=== PATIENT | male | born 1990 | race Caucasian/White ===

== ENCOUNTER 2018-05-11 15:11 | Emergency (ER) | payer MEDICAID ==
[~2018-05-11] VITALS: Ht 28086.8 cm; Wt 67.3 kg
[~2018-05-11 15:11] MED LIST: NO HOME MEDS
[2018-05-11 17:56] LABS: BASOPHILS % (AUTO) 0.2 % (0-1); EOSINOPHILS # (AUTO) 0.1 X10'3 (0-0.9); EOSINOPHILS % (AUTO) 0.4 % (0-6); HEMATOCRIT 43.2 % (42.0-52.0); HEMOGLOBIN 14.8 g/dl (14.0-17.9); LYMPHOCYTES # (AUTO) 1.9 X10'3 (1.1-4.8); LYMPHOCYTES % (AUTO) 12.1 % (21-51); MEAN CORPUSCULAR HGB CONC 34.2 % (33.0-36.5); MEAN CORPUSCULAR VOLUME 90.6 FL (78-98); MEAN PLATELET VOLUME 8.2 FL (7.4-10.4); MONOCYTES % (AUTO) 6.6 % (2-12); NEUTROPHILS # (AUTO) 12.5 X10'3 (1.8-7.7); NEUTROPHILS % (AUTO) 80.7 % (42-75); PLATELET COUNT 260 X10'3 (140-440); RED BLOOD COUNT 4.77 X10'6 (4.70-6.10); RED CELL DISTRIBUTION WIDTH 13.1 % (11.5-14.5); WHITE BLOOD COUNT 15.5 X10'3 (4.5-11.0)
[2018-05-11 18:18] LABS: ALBUMIN 4.5 G/DL (3.4-5.0); ANION GAP 8 (8-16); BLOOD UREA NITROGEN 20 MG/DL (7-18); BUN/CREATININE RATIO 19.2 (5.4-32.0); CALCIUM 9.4 MG/DL (8.5-10.1); CHLORIDE 104 MMOL/L (99-107); CREATININE 1.04 MG/DL (0.60-1.10); GLUCOSE 93 MG/DL (70-104); POTASSIUM 4.1 MMOL/L (3.5-5.1); SODIUM 143 MMOL/L (135-145); TOTAL CARBON DIOXIDE 30.8 MMOL/L (24-32); eGFR 86 ML/MIN
[2018-05-11 18:18] LABS: CLARITY,URINE SLIGHTLY CLOUDY (Clear); COLOR,URINE YELLOW (Yellow); GLUCOSE, URINE NEGATIVE (Neg); KETONES,URINE TRACE mg/dl (Neg); LEUKOCYTE ESTERASE ,URINE NEGATIVE (Neg); NITRITES, URINE NEGATIVE (Neg); OCCULT BLOOD,URINE NEGATIVE (Neg); PH,URINE 5.5 (4.8-8.0); PROTEIN,URINE 30 mg/dl (Neg); UROBILINOGEN,URINE 0.2 E.U/dL (0.2-1.0)
[2018-05-11 18:22] LABS: UA COLLECTION TYPE CLN CATCH MIDSTREAM
[2018-05-11 18:28] LABS: PLATELET ESTIMATE NORMAL; TOTAL CELLS COUNTED 100
[2018-05-11 18:29] LABS: TOXIC GRANULATION 1+; TOXIC VACUOLATION FEW
[2018-05-11 18:33] LABS: URINE AMPHETAMINE SCREEN NEGATIVE (Neg); URINE BARBITUATE SCREEN NEGATIVE (Neg); URINE BENZODIAZEPINES SCREEN NEGATIVE (Neg); URINE CANNABINOID SCREEN POSITIVE (Neg); URINE COCAINE SCREEN NEGATIVE (Neg); URINE METHADONE SCREEN NEGATIVE (Neg); URINE OPIATE SCREEN NEGATIVE (Neg); URINE PHENCYCLIDINE SCREEN NEGATIVE (Neg)
[2018-05-11 18:35] LABS: BACTERIA,URINE NONE SEEN /HPF (Neg); CAL OXALATE CRYSTALS 4+ /HPF (NEGATIVE); HYALINE CASTS 0-3 /LPF (NEGATIVE); MUCUS STRANDS MODERATE /LPF (Neg); RBC,URINE NONE SEEN /HPF (0-2); SPERM MODERATE /HPF (NEGATIVE); SQUAMOUS EPITHELIAL CELL,UR NONE SEEN /LPF (FEW); WBC,URINE NONE SEEN /HPF (0-4)
[2018-05-12 06:57] LABS: BASOPHILS % (AUTO) 0.5 % (0-1); EOSINOPHILS # (AUTO) 0.1 X10'3 (0-0.9); EOSINOPHILS % (AUTO) 2.1 % (0-6); HEMATOCRIT 41.5 % (42.0-52.0); HEMOGLOBIN 14.1 g/dl (14.0-17.9); LYMPHOCYTES # (AUTO) 1.8 X10'3 (1.1-4.8); LYMPHOCYTES % (AUTO) 31.4 % (21-51); MEAN CORPUSCULAR HEMOGLOBIN 30.9 PG (27.0-31.0); MEAN CORPUSCULAR VOLUME 90.7 FL (78-98); MEAN PLATELET VOLUME 8.1 FL (7.4-10.4); MONOCYTES # (AUTO) 0.6 X10'3 (0-0.9); MONOCYTES % (AUTO) 11.1 % (2-12); NEUTROPHILS # (AUTO) 3.2 X10'3 (1.8-7.7); NEUTROPHILS % (AUTO) 54.9 % (42-75); PLATELET COUNT 236 X10'3 (140-440); RED BLOOD COUNT 4.58 X10'6 (4.70-6.10); RED CELL DISTRIBUTION WIDTH 13.4 % (11.5-14.5); WHITE BLOOD COUNT 5.9 X10'3 (4.5-11.0)
[2018-05-12 07:10] LABS: ALANINE AMINOTRANSFERASE 53 U/L (12-78); ALBUMIN 3.9 G/DL (3.4-5.0); ALBUMIN/GLOBULIN RATIO 1.3 (1.1-1.5); ALKALINE PHOSPHATASE 78 IU/L (46-116); ANION GAP 1 (8-16); ASPARTATE AMINO TRANSFERASE 43 U/L (10-37); BILIRUBIN,TOTAL 0.4 MG/DL (0.1-1.0); BLOOD UREA NITROGEN 19 MG/DL (7-18); BUN/CREATININE RATIO 17.9 (5.4-32.0); CHLORIDE 106 MMOL/L (99-107); CREATININE 1.06 MG/DL (0.60-1.10); GLUCOSE 104 MG/DL (70-104); POTASSIUM 4.2 MMOL/L (3.5-5.1); SODIUM 139 MMOL/L (135-145); TOTAL CARBON DIOXIDE 31.9 MMOL/L (24-32); TOTAL PROTEIN 6.8 G/DL (6.4-8.2); eGFR 84 ML/MIN
[2018-05-12 07:11] LABS: CALCIUM 8.8 MG/DL (8.5-10.1)
[2018-05-12] MEDS ORDERED: LORazepam 1 MG tablet PO ONE (07:40)
[2018-05-12] MEDS: diphenhydrAMINE 25mg capsule PO PRN ×2 (11:57→21:33)
[2018-05-12] MEDS: risperiDONE 2mg tablet PO PRN ×2 (11:57→21:33)
[2018-05-12] MEDS: LORazepam 1 MG tablet PO PRN ×2 (11:57→21:33)
[2018-05-13] MEDS: diphenhydrAMINE 25mg capsule PO PRN (19:36)
[2018-05-13] MEDS: LORazepam 1 MG tablet PO PRN (19:36)
[2018-05-13] MEDS: risperiDONE 2mg tablet PO PRN (19:38)
[2018-05-14] MEDS: diphenhydrAMINE 25mg capsule PO PRN (10:36)
[2018-05-14] MEDS: LORazepam 1 MG tablet PO PRN (10:36)
[2018-05-14] MEDS: risperiDONE 2mg tablet PO PRN (10:37)
[2018-05-15] MEDS: LORazepam 1 MG tablet PO PRN ×3 (01:06→23:44)
[2018-05-15] MEDS: risperiDONE 2mg tablet PO PRN ×2 (01:06→14:29)
[2018-05-15] MEDS: diphenhydrAMINE 25mg capsule PO PRN ×2 (14:29→23:44)
[2018-05-16] MEDS: LORazepam 1 MG tablet PO PRN ×2 (07:56→16:14)
[2018-05-16] MEDS: diphenhydrAMINE 25mg capsule PO PRN ×2 (07:56→16:14)
[2018-05-16] MEDS: risperiDONE 2mg tablet PO PRN (07:57)
[2018-05-16] MEDS: risperiDONE 2mg tablet PO SCH (19:42)
[2018-05-16] MEDS: benztropine 1mg tablet PO SCH (20:17)
[2018-05-17] MEDS: risperiDONE 2mg tablet PO SCH ×2 (08:17→20:22)
[2018-05-17] MEDS: diphenhydrAMINE 25mg capsule PO PRN (10:41)
[2018-05-17] MEDS: LORazepam 1 MG tablet PO PRN ×2 (10:41→20:22)
[2018-05-17] MEDS: benztropine 1mg tablet PO SCH (20:22)
[2018-05-18] MEDS: LORazepam 1 MG tablet PO PRN ×2 (07:34→15:26)
[2018-05-18] MEDS: risperiDONE 2mg tablet PO SCH (07:35)
[2018-05-18] MEDS: diphenhydrAMINE 25mg capsule PO PRN ×2 (07:35→15:26)
[2018-05-18] MEDS ORDERED: haloperidol 5mg tablet PO SCH (08:00)
[2018-05-18 16:00] VITALS: BP 124/76
== END 2018-05-18 15:40 ==
LOC: ER 15:12
DX: R45.850 Homicidal ideations (principal); F12.10 Cannabis abuse, uncomplicated; F15.90 Other stimulant use, unspecified, uncomplicated; F41.9 Anxiety disorder, unspecified; F20.9 Schizophrenia, unspecified; F31.9 Bipolar disorder, unspecified; Z59.0 Homelessness; Z60.2 Problems related to living alone
CPT/HCPCS: 36415; 80048; 80053; 80305; 81001; 84439; 84443; 85025; 99285; Q0163

== ENCOUNTER 2019-01-31 12:17 | Emergency (ER) | payer MEDICAID ==
[~2019-01-31] VITALS: Ht 172.7 cm; Wt 70.5 kg
[2019-01-31 12:45] VITALS: BP 128/71
[2019-01-31] MEDS ORDERED: PROCHC RC (14:09)
[2019-01-31 18:19] LABS: OCCULT BLOOD STOOL POSITIVE (Neg)
== END 2019-01-31 14:32 | disposition home or self-care (01) ==
LOC: ER 12:18
DX: K64.9 Unspecified hemorrhoids (principal); F12.90 Cannabis use, unspecified, uncomplicated; F15.90 Other stimulant use, unspecified, uncomplicated; Z60.2 Problems related to living alone; Z59.0 Homelessness; Z79.899 Other long term (current) drug therapy
CPT/HCPCS: 82272; 99283

== ENCOUNTER 2019-07-28 18:16 | Emergency (ER) | payer MEDICAID ==
[~2019-07-28] VITALS: Ht 175.3 cm; Wt 72.0 kg
[~2019-07-28 18:16] MED LIST changes: +PROCHC RC
--- NOTE | 2019-07-28 19:30 | NUR ---
instructed tech Dav to remove patient's belongings, change patient in to green scrubs and remove equipment from room per protocol.
[2019-07-28 20:46] LABS: BASOPHILS # (AUTO) 0.1 X10'3 (0-0.2); BASOPHILS % (AUTO) 0.8 % (0-1); EOSINOPHILS # (AUTO) 0.2 X10'3 (0-0.9); EOSINOPHILS % (AUTO) 2.3 % (0-6); HEMATOCRIT 37.6 % (42.0-52.0); HEMOGLOBIN 12.8 g/dl (14.0-17.9); LYMPHOCYTES # (AUTO) 2.4 X10'3 (1.1-4.8); LYMPHOCYTES % (AUTO) 35.1 % (21-51); MEAN CORPUSCULAR HEMOGLOBIN 30.5 PG (27.0-31.0); MEAN CORPUSCULAR HGB CONC 34.1 g/dL (33.0-36.5); MEAN CORPUSCULAR VOLUME 89.4 FL (78-98); MEAN PLATELET VOLUME 7.9 FL (7.4-10.4); MONOCYTES # (AUTO) 0.8 X10'3 (0-0.9); MONOCYTES % (AUTO) 11.3 % (2-12); NEUTROPHILS # (AUTO) 3.4 X10'3 (1.8-7.7); NEUTROPHILS % (AUTO) 50.5 % (42-75); PLATELET COUNT 249 X10'3 (140-440); RED BLOOD COUNT 4.21 X10'6 (4.70-6.10); RED CELL DISTRIBUTION WIDTH 13.9 % (11.5-14.5); WHITE BLOOD COUNT 6.8 X10'3 (4.5-11.0)
[2019-07-28 20:55] LABS: ALANINE AMINOTRANSFERASE 41 U/L (12-78); ALBUMIN 3.8 G/DL (3.4-5.0); ALBUMIN/GLOBULIN RATIO 1.3 (1.1-1.5); ALKALINE PHOSPHATASE 73 IU/L (46-116); ANION GAP 8 (8-16); ASPARTATE AMINO TRANSFERASE 51 U/L (10-37); BILIRUBIN,TOTAL 0.3 MG/DL (0.1-1.0); BLOOD UREA NITROGEN 13 MG/DL (7-18); BUN/CREATININE RATIO 15.5 (5.4-32.0); CALCIUM 8.3 MG/DL (8.5-10.1); CHLORIDE 106 MMOL/L (99-107); CREATININE 0.84 MG/DL (0.60-1.10); GLUCOSE 87 MG/DL (70-104); POTASSIUM 3.4 MMOL/L (3.5-5.1); SODIUM 142 MMOL/L (135-145); TOTAL CARBON DIOXIDE 28.2 MMOL/L (24-32); TOTAL PROTEIN 6.7 G/DL (6.4-8.2); eGFR > 90 ML/MIN
[2019-07-28 21:04] LABS: ETHANOL 0.032 GM/DL (0.0-0.010)
[2019-07-28 21:36] LABS: CLARITY,URINE CLEAR (Clear); COLOR,URINE YELLOW (Yellow); GLUCOSE, URINE NEGATIVE (Neg); KETONES,URINE NEGATIVE (Neg); LEUKOCYTE ESTERASE ,URINE NEGATIVE (Neg); NITRITES, URINE NEGATIVE (Neg); OCCULT BLOOD,URINE SMALL (Neg); PH,URINE 6.5 (4.8-8.0); PROTEIN,URINE NEGATIVE (Neg); UA COLLECTION TYPE VOIDED; UROBILINOGEN,URINE 0.2 E.U/dL (0.2-1.0)
[2019-07-28 21:47] LABS: URINE AMPHETAMINE SCREEN POSITIVE (Neg); URINE BARBITUATE SCREEN NEGATIVE (Neg); URINE BENZODIAZEPINES SCREEN NEGATIVE (Neg); URINE CANNABINOID SCREEN POSITIVE (Neg); URINE COCAINE SCREEN NEGATIVE (Neg); URINE METHADONE SCREEN NEGATIVE (Neg); URINE OPIATE SCREEN NEGATIVE (Neg); URINE PHENCYCLIDINE SCREEN NEGATIVE (Neg)
[2019-07-28 21:53] LABS: BACTERIA,URINE NONE SEEN /HPF (Neg); WBC,URINE 0-4 /HPF (0-4)
[2019-07-28 21:54] LABS: MUCUS STRANDS FEW /LPF (Neg); SQUAMOUS EPITHELIAL CELL,UR FEW /LPF (FEW)
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
--- NOTE | 2019-07-29 03:18 | NUR ---
Packet faxed to [facility]. Unable to confirm receipt of packet as [id number] hours.
[2019-07-29 04:27] VITALS: BP 106/48
--- NOTE | 2019-07-29 05:02 | NUR ---
PATIENT APPEARS TO BE SLEEPING ON HIS LEFT SIDE, RR EVEN UNLABORED
--- NOTE | 2019-07-29 07:29 | NUR ---
ASLEEP IN BED.RESP UNLABORED. NO DISTRESS NOTED AT THIS TIME.
--- NOTE | 2019-07-29 10:26 | NUR ---
Break RN: patient asleep at this time.
--- NOTE | 2019-07-29 10:47 | NUR ---
[facility] MENTAL HE[facility] WORKER AT THE BEDSIDE TO INTERVIEW PATIENT.
--- NOTE | 2019-07-29 12:34 | NUR ---
GAVE PT HIS BELONGINGS, STATED HE IS BEING D/C, AND ASKED HIM TO GET DRESSED. PT PUT THE BLANKETS OVER HIS HEAD AND IGNORED ME. SECURITY IN OF.
[2019-07-29] MEDS ORDERED: LIDO28CR2 TOP (17:59)
[2019-08-03] MEDS ORDERED: HYDR25SU32 RC (18:47)
== END 2019-07-29 13:01 ==
LOC: ER 18:20
DX: F23 Brief psychotic disorder (principal); R45.851 Suicidal ideations; K62.89 Other specified diseases of anus and rectum; F10.129 Alcohol abuse with intoxication, unspecified; F12.90 Cannabis use, unspecified, uncomplicated; F15.10 Other stimulant abuse, uncomplicated; F41.9 Anxiety disorder, unspecified; F31.9 Bipolar disorder, unspecified; Z59.0 Homelessness; Z60.2 Problems related to living alone; Y90.0 Blood alcohol level of less than 20 mg/100 ml
CPT/HCPCS: 36415; 80053; 80305; 80320; 81001; 84443; 85025; 99284

== ENCOUNTER 2019-07-29 17:13 | Emergency (ER) | payer MEDICAID ==
[~2019-07-29] VITALS: Ht 175.3 cm; Wt 72.0 kg
[2019-07-29 17:16] VITALS: BP 116/73
[2019-07-29] MEDS ORDERED: LIDO28CR2 TOP (17:59)
[2019-08-03] MEDS ORDERED: HYDR25SU32 RC (18:47)
== END 2019-07-29 18:16 | disposition home or self-care (01) ==
LOC: ER 17:14
DX: K64.9 Unspecified hemorrhoids (principal); F41.9 Anxiety disorder, unspecified; F31.9 Bipolar disorder, unspecified; F20.9 Schizophrenia, unspecified; F12.90 Cannabis use, unspecified, uncomplicated; F15.90 Other stimulant use, unspecified, uncomplicated; F10.99 Alcohol use, unspecified with unspecified alcohol-induced disorder; Z60.2 Problems related to living alone; Z59.0 Homelessness; Z79.899 Other long term (current) drug therapy; Y90.9 Presence of alcohol in blood, level not specified
CPT/HCPCS: 99283

== ENCOUNTER 2019-07-30 13:58 | Emergency (ER) | payer MEDICAID ==
[~2019-07-30] VITALS: Ht 175.3 cm; Wt 70.0 kg
[~2019-07-30 13:58] MED LIST changes: +LIDO28CR2 TOP; -PROCHC RC
[2019-07-30 15:06] VITALS: BP 136/74
[2019-08-03] MEDS ORDERED: HYDR25SU32 RC (18:47)
== END 2019-07-30 15:08 | disposition home or self-care (01) ==
LOC: ER 14:00
DX: K64.9 Unspecified hemorrhoids (principal); F41.9 Anxiety disorder, unspecified; F31.9 Bipolar disorder, unspecified; F20.9 Schizophrenia, unspecified; F12.90 Cannabis use, unspecified, uncomplicated; F15.90 Other stimulant use, unspecified, uncomplicated; F10.99 Alcohol use, unspecified with unspecified alcohol-induced disorder; Z60.2 Problems related to living alone; Z59.0 Homelessness; Z79.899 Other long term (current) drug therapy; Y90.9 Presence of alcohol in blood, level not specified
CPT/HCPCS: 99281

== ENCOUNTER → 2019-08-03 | Emergency (ER) | payer MEDICAID ==
[~2019-08-03] VITALS: Ht 175.3 cm; Wt 70.0 kg
[~2019-08-03] MED LIST changes: +HYDR25SU32 RC
[2019-08-03 17:55] VITALS: BP 136/78
== END | disposition home or self-care (01) ==
LOC: ER 17:53
DX: K62.89 Other specified diseases of anus and rectum (principal); F41.9 Anxiety disorder, unspecified; F31.9 Bipolar disorder, unspecified; F20.9 Schizophrenia, unspecified; F12.90 Cannabis use, unspecified, uncomplicated; F15.90 Other stimulant use, unspecified, uncomplicated; Z60.2 Problems related to living alone; Z59.0 Homelessness; Z79.899 Other long term (current) drug therapy
CPT/HCPCS: 99282

== ENCOUNTER 2019-08-14 10:09 | Emergency (ER) | payer MEDICAID ==
[~2019-08-14] VITALS: Ht 175.3 cm; Wt 57.8 kg
[2019-08-14 10:16] VITALS: BP 115/82
[2019-08-14] MEDS ORDERED: HYDR25SU32 RC (10:27)
== END 2019-08-14 10:34 | disposition home or self-care (01) ==
LOC: ER 10:11
DX: K64.9 Unspecified hemorrhoids (principal); Z76.0 Encounter for issue of repeat prescription; F15.10 Other stimulant abuse, uncomplicated; F12.90 Cannabis use, unspecified, uncomplicated; F11.90 Opioid use, unspecified, uncomplicated; F17.200 Nicotine dependence, unspecified, uncomplicated; Z59.0 Homelessness; Z79.899 Other long term (current) drug therapy
CPT/HCPCS: 99282

== ENCOUNTER 2019-09-25 15:41 | Emergency (ER) | payer MEDICAID ==
[~2019-09-25] VITALS: Ht 175.3 cm; Wt 50.0 kg
[2019-09-25 16:08] VITALS: BP 115/71
== END 2019-09-25 19:13 | disposition left against medical advice (07) ==
LOC: ER 15:41
DX: R21 Rash and other nonspecific skin eruption (principal); Z53.21 Procedure and treatment not carried out due to patient leaving prior to being seen by health care provider

== ENCOUNTER 2019-12-07 09:09 | Emergency (ER) | payer MEDICAID ==
[~2019-12-07] VITALS: Ht 175.3 cm; Wt 59.1 kg
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
--- NOTE | 2019-12-07 09:34 | NUR ---
SPOKE TO [employer]. PT. IS WELL KNOWN TO THEM. THE PT. HAS NO SUSPECT INFORMATION AND THEY WILL FOLLOW UP LATER
[2019-12-07] MEDS ORDERED: ibuprofen tablet 400 MG TABLET PO ONE (10:10)
[2019-12-07] MEDS ORDERED: ibuprofen 200mg tablet PO ONE (10:20)
[2019-12-07] MEDS ORDERED: IBUP-1984 PO (10:31)
[2019-12-07 11:49] VITALS: BP 115/79
== END 2019-12-07 11:53 | disposition home or self-care (01) ==
LOC: ER 09:09
DX: R07.89 Other chest pain (principal); F41.9 Anxiety disorder, unspecified; F31.9 Bipolar disorder, unspecified; F20.9 Schizophrenia, unspecified; F12.90 Cannabis use, unspecified, uncomplicated; F15.90 Other stimulant use, unspecified, uncomplicated; F11.90 Opioid use, unspecified, uncomplicated; Z60.2 Problems related to living alone; Z59.0 Homelessness; Z72.89 Other problems related to lifestyle; Z79.899 Other long term (current) drug therapy; Y04.8XXA Assault by other bodily force, initial encounter; Y93.89 Activity, other specified; Y92.89 Other specified places as the place of occurrence of the external cause; Y99.8 Other external cause status
CPT/HCPCS: 71046; 99283

== ENCOUNTER 2019-12-09 16:29 | Emergency (ER) | payer MEDICAID ==
[~2019-12-09] VITALS: Ht 175.3 cm; Wt 68.0 kg
[~2019-12-09 16:29] MED LIST changes: +IBUP-1984 PO
[2019-12-09 16:57] VITALS: BP 113/74
[2019-12-09] MEDS ORDERED: CEPH-572 PO (17:02)
[2019-12-09] MEDS ORDERED: SULF1TAB49 PO (17:02)
[2019-12-09] MEDS ORDERED: acetaminophen 325mg tablet PO ONE (17:05)
[2019-12-09] MEDS ORDERED: TETanus/Pertussis (Acell)/Diphther VAC/PF (Tdap-Adult) 0.5ml syringe IMVAC ONE (17:05)
== END 2019-12-09 18:07 | disposition home or self-care (01) ==
LOC: ER 16:29
DX: L02.412 Cutaneous abscess of left axilla (principal); L03.112 Cellulitis of left axilla; F12.90 Cannabis use, unspecified, uncomplicated; F15.90 Other stimulant use, unspecified, uncomplicated; F11.90 Opioid use, unspecified, uncomplicated; Z59.0 Homelessness; Z79.899 Other long term (current) drug therapy
CPT/HCPCS: 90471; 90715; 99283

== ENCOUNTER 2019-12-10 10:53 | Emergency (ER) | payer MEDICAID ==
[~2019-12-10] VITALS: Ht 175.3 cm; Wt 68.0 kg
[~2019-12-10 10:53] MED LIST changes: +CEPH-572 PO; +SULF1TAB49 PO
[2019-12-10 11:04] VITALS: BP 114/69
[2019-12-10] MEDS ORDERED: HYDROcodone/acetaminophen 5mg/325mg tablet PO ONE (11:55)
[2019-12-10] MEDS ORDERED: ibuprofen 200mg tablet PO ONE (11:55)
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
== END 2019-12-10 12:11 | disposition home or self-care (01) ==
LOC: ER 10:54
DX: M25.511 Pain in right shoulder (principal); L53.9 Erythematous condition, unspecified; F41.9 Anxiety disorder, unspecified; F31.9 Bipolar disorder, unspecified; F20.9 Schizophrenia, unspecified; F12.90 Cannabis use, unspecified, uncomplicated; F15.90 Other stimulant use, unspecified, uncomplicated; F11.90 Opioid use, unspecified, uncomplicated; F17.200 Nicotine dependence, unspecified, uncomplicated; Z60.2 Problems related to living alone; Z59.0 Homelessness; Z72.89 Other problems related to lifestyle; Z79.899 Other long term (current) drug therapy; Y04.8XXA Assault by other bodily force, initial encounter; Y93.89 Activity, other specified; Y92.89 Other specified places as the place of occurrence of the external cause; Y99.8 Other external cause status
CPT/HCPCS: 73010; 99284

== ENCOUNTER 2020-01-28 12:41 | Emergency (ER) | payer MEDICAID ==
[~2020-01-28] VITALS: Ht 175.3 cm; Wt 60.0 kg
[~2020-01-28 12:41] MED LIST changes: -CEPH-572 PO; -IBUP-1984 PO; -SULF1TAB49 PO
[2020-01-28 12:45] VITALS: BP 112/72
[2020-01-28] MEDS ORDERED: PHEN1SUP96 PR (12:50)
== END 2020-01-28 12:59 | disposition home or self-care (01) ==
LOC: ER 12:42
DX: Z00.00 Encounter for general adult medical examination without abnormal findings (principal); K64.9 Unspecified hemorrhoids; F41.9 Anxiety disorder, unspecified; F31.9 Bipolar disorder, unspecified; F20.9 Schizophrenia, unspecified; F12.90 Cannabis use, unspecified, uncomplicated; F15.90 Other stimulant use, unspecified, uncomplicated; F11.90 Opioid use, unspecified, uncomplicated; Z59.0 Homelessness; Z56.0 Unemployment, unspecified; Z79.899 Other long term (current) drug therapy
CPT/HCPCS: 99281; 99282